=== PATIENT | female | born 1960 | race American Indian/Alaskan Native ===

== ENCOUNTER 2018-01-11 09:01 | Emergency (ER) | payer OTHER ==
[2018-01-11 09:49] VITALS: BMI 31.1
--- NOTE | 2018-01-11 10:10 | ED PDOC ---
Arrival/HPI - General Chief Complaint: Allergic Reaction Historian: Patient - History of Present Illness Narrative History of Present Illness (Text): 01/11/18 10:05 57yo female with pmhx of Asthma who present with complaint of periorbital swelling, itching, scalp redness and itching x 4days. Notes that symptom started s/p getting hair dye 5days ago at a new [facility]. States she was seen at ED in [place] and was only told to apply ice to her eyes. States she has been taking Benadryl at home without relieve. Reports taking Benadryl at 0800am this morning. Denies visual changes, purulent discharge, redness, facial redness, pain, SOB, tongue swelling, rash, any other complaint. Past Medical History - Provider Review Nursing Documentation Reviewed: Yes - Cardiac Hx Cardiac Disorders: Yes Hx Heart Murmur: Yes - Pulmonary Hx Respiratory Disorders: Yes Hx Asthma: Yes - Neurological Hx Neurological Disorder: No - HEENT Hx HEENT Disorder: No - Renal Hx Renal Disorder: No - Endocrine/Metabolic Hx Endocrine Disorders: No - Hematological/Oncological Hx Blood Disorders: No - Integumentary Hx Dermatological Disorder: No - Musculoskeletal/Rheumatological Hx Musculoskeletal Disorders: No - Gastrointestinal Hx Gastrointestinal Disorders: No - Genitourinary/Gynecological Hx Genitourinary Disorders: No - Psychiatric Hx Psychophysiologic Disorder: No Hx Substance Use: No - Surgical History Hx Section: Yes Family/Social History - Physician Review Nursing Documentation Reviewed: Yes Family/Social History: Unknown Family HX Smoking Status: Never Smoked Hx Alcohol Use: No Hx Substance Use: No Allergies/Home Meds Allergies/Adverse Reactions: Allergies cat dander Allergy (Verified 01/11/18 09:54) SNEEZING pollen extracts Allergy (Verified 01/11/18 09:54) SNEEZING dust Allergy (Uncoded 01/11/18 09:56) SNEEZING styrofoam Allergy (Uncoded 01/11/18 09:56) SNEEZING Review of Systems - Physician Review All systems were reviewed & negative as marked: Yes - Review of Systems Constitutional: Normal Eyes: Other (Periorbital swelling and itching) ENT: Normal Respiratory: Normal Cardiovascular: Normal Gastrointestinal: Normal Genitourinary Female: Normal Musculoskeletal: Normal Skin: Normal Neurological: Normal Endocrine: Normal Hemo/Lymphatic: Normal Psychiatric: Normal Physical Exam Vital Signs Reviewed: Yes Vital Signs Pulse Resp BP Pulse Ox 01/11/18 09:47 94 H 17 114/75 99 Temperature: Afebrile Blood Pressure: Normal Pulse: Regular Respiratory Rate: Normal Appearance: Positive for: Well-Appearing, Non-Toxic, Comfortable Pain Distress: None Mental Status: Positive for: Alert and Oriented X 3 - Systems Exam Head: Present: Atraumatic, Normocephalic, Other (Scaly irritated and erythematous frontal scalp noted) Pupils: Present: PERRL Extroacular Muscles: Present: EOMI, Other (B/L Periorbital swelling. No discharge. No overlaying erythema.) Conjunctiva: Present: Normal Mouth: Present: Moist Mucous Membranes Neck: Present: Normal Range of Motion Respiratory/Chest: Present: Clear to Auscultation, Good Air Exchange. No: Respiratory Distress, Accessory Muscle Use Cardiovascular: Present: Regular Rate and Rhythm, Normal S1, S2. No: Murmurs Abdomen: No: Tenderness, Distention, Peritoneal Signs Back: Present: Normal Inspection Upper Extremity: Present: Normal Inspection. No: Cyanosis, Edema Lower Extremity: Present: Normal Inspection. No: Edema Neurological: Present: GCS=15, CN II-XII Intact, Speech Normal Skin: Present: Warm, Dry, Normal Color. No: Rashes Psychiatric: Present: Alert, Oriented x 3, Normal Insight, Normal Concentration Medical Decision Making ED Course and Treatment: 01/11/18 11:09 PT presented to ED for stated history. She had b/l periborbital swelling and noted scratching her eyes. She however denied visual changes, pain and purulent discharge from the eyes. She had no overlaying erythema r/o facial cellulitis. She had no stridor. Controlled her secretions and in no distress. she was treated with Prednisone and Pepcid. she took Benadryl UPHOLSTERER LIMOUSINE AND HEARSE. She was DC home with same medication and was advised to f/u with recycling program manager/Bank Secrecy Act Officer [facility] ED for any new or worsening symptoms. Disposition/Present on Arrival - Present on Arrival Any Indicators Present on Arrival: No History of DVT/PE: No History of Uncontrolled Diabetes: No Urinary Catheter: No History of Decub. Ulcer: No History Surgical Site Infection Following: None - Disposition Have Diagnosis and Disposition been Completed?: Yes Diagnosis: Allergic reaction Disposition: HOME/ ROUTINE Disposition Time: 10:15 Patient Plan: Discharge Patient Problems: Current Active Problems Problem Status Onset Allergic reaction Acute Condition: STABLE Discharge Instructions (ExitCare): Hives (DC) Additional Instructions: Follow up with recycling program manager/Bank Secrecy Act Officer Return to ED for any new or worsening symptoms Prescriptions: Famotidine [Pepcid] 20 mg PO DAILY #10 tab predniSONE [Prednisone] 20 mg PO BID #8 tab Referrals: Coretta Sullivan MD [Staff Provider] - Follow up with primary Forms: [employer] (Persian)
[2018-01-11 12:03] VITALS: BP 131/88; PULSE 68; RESP 18; TEMP 98; O2SAT 98
== END 2018-01-11 12:03 | disposition home or self-care (01) ==
LOC: ED 09:01
DX: T78.49XA Other allergy, initial encounter (principal); X58.XXXA Exposure to other specified factors, initial encounter